=== PATIENT | female | born 1950 | race African-American/Black ===

== ENCOUNTER 2019-01-19 07:10 | Emergency (ER) | payer MEDICARE, OTHER ==
[~2019-01-19] VITALS: Ht 154.9 cm; Wt 54.9 kg
[2019-01-19] MEDS ORDERED: DYRENIUM50 MG PO (07:22)
[2019-01-19] MEDS ORDERED: METOPROLOL SUCC25 MG ORAL (07:22)
--- NOTE | 2019-01-19 07:25 | NUR ---
ED Nurse Note: Patient walked into the ED, she stated that she clocked out of work at 0605 AM, walked around the corner and slipped on a puddle of water. She states the top, outer edge is where she hurt her foot. She does not feel pain when sitting, but pain is about a 5/10 when walking. Patient currely resting comfortably.
--- NOTE | 2019-01-19 07:32 | Emergency Room Report ---
History of Present Illness General Chief Complaint: Lower Extremity Injury Source: Patient Present Illness HPI Patient presents after slipping on water. She almost fell but ended up twisting her right ankle. She has history of fracture when she was 14. Denies any numbness. She rates the pain 6/10, aching and somewhat sharp. It is more over the lateral side of the foot but radiates up into the ankle area also. She is able to walk but with difficulty. History of hypertension. 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 Reviewed Nursing Documentation: PMH: Agreed; PSxH: Agreed Nursing Documentation-PMH Past Medical History: No History, Except For Hx Hypertension: Yes Review of Systems Musculoskeletal: Reports: see HPI Skin: Denies: rash Neurological: Reports: see HPI Physical Exam Vital Signs Date Time Temp Pulse Resp B/P (MAP) Pulse Ox O2 Delivery O2 Flow Rate FiO2 01/19/19 07:16 71 15 137/80 (99) 99 Room Air Sp02 EP Interpretation: reviewed, normal General Appearance: well appearing, no apparent distress, GCS 15 Head: normocephalic Eyes: bilateral eye normal inspection, bilateral eye PERRL ENT: moist mucus membranes Cardiovascular #1: regular rate, rhythm Cardiovascular #2: 2+ dorsalis pedis (R) - Good capillary fill Gastrointestinal: normal inspection Musculoskeletal: swelling - dorsolateral foot, digits/nails normal, no calf tenderness, tenderness - Right lateral malleolus and dorsum and fifth metatarsal area without point tenderness. Neurologic: alert, other - Distal neuro exam is normal Psychiatric: mood/affect normal Skin: normal color, other - no hematoma Medical Decision Making Diagnostic Impression: Primary Impression: Right foot sprain Qualified Codes: S93.601A - Unspecified sprain of right foot, initial encounter ER Course Presents after twisting her right foot and ankle. Differential includes fracture, sprain amongst others. Ligaments are stable. Based on [facility] [place] ankle rules she needs an x-ray due to age. Tylenol will be given. X-rays without fracture. Some osteopenia. Dudley applied by me. Tension and position excellent. Some improvement in pain. Distal neurovascular exam normal as checked by me. Discussed treatment plan with patient. Patient stable for outpatient observation and treatment. Other X-Ray Diagnostic Results Other X-Ray Diagnostic Results : X-Ray ordered: R foot # of Views/Limited Vs Complete: 3 View Indication: Other EP Interpretation: Yes Interpretation: no dislocation, no soft tissue swelling, no fractures, other - Osteopenia Impression: Other Electronically Signed by: Electronically signed by Alex Cannon MD Last Vital Signs Date Time Temp Pulse Resp B/P (MAP) Pulse Ox O2 Delivery O2 Flow Rate FiO2 01/19/19 08:25 98.2 72 17 132/82 99 Room Air Status: improved Disposition: HOME, SELF-CARE Condition: Improved Scripts Acetaminophen (Tylenol) 325 Mg Tablet 650 MG ORAL Q6H PRN for Prn Pain/Headache/Temp > 101, #20 TAB 0 Refills Prov: Alex Cannon MD 01/19/19 Alex Cannon MD Jan 19, 2019 07:32
[2019-01-19] MEDS ORDERED: TYLENOL325 MG ORAL (08:17)
[2019-01-19 08:25] VITALS: BP 132/82
--- NOTE | 2019-01-19 08:25 | NUR ---
ER DISCHARGE NOTE: Patient is cleared to be discharged per Dr. Cannon. Patient has steady gait, able to walk with a slight limp. Patient verbalized understanding of discharge instructions.
--- NOTE | 2019-01-19 09:48 | Diagnostic Imaging Report ---
. Indication: Pain, trauma Technique: 3 views right foot Comparison: none Findings: There is evidence of prior osteotomy of the head of the fifth proximal phalanx. No acute fractures. No dislocations. The joint spaces are preserved. Impression: No acute bony trauma
== END 2019-01-19 08:25 | disposition home or self-care (01) ==
LOC: EMR 07:56
DX: S93.601A Unspecified sprain of right foot, initial encounter (principal); I10 Essential (primary) hypertension; X50.1XXA Overexertion from prolonged static or awkward postures, initial encounter; Y93.9 Activity, unspecified; Y92.9 Unspecified place or not applicable; Z88.5 Allergy status to narcotic agent; Z88.2 Allergy status to sulfonamides
CPT/HCPCS: 99283